=== PATIENT | male | born 1950 | race Asian ===

== ENCOUNTER 2016-12-16 14:15 | Inpatient (IN) | payer OTHER ==
[2016-12-16] MEDS ORDERED: IOPAMIDOL 300 (61%) 150 ML VIAL IV ONE (14:16)
[2016-12-16 14:53] LABS: ABSOLUTE NEUTROPHIL COUNT 14.8 K/mm3 (1.8-7.7); BASO % 0.2 % (0.2-1.0); EOS % 0.1 % (0.9-2.9); HEMATOCRIT 36.2 % (32.0-52.0); IMM NEUT # 0.2 K/mm3 (0-0.2); IMM NEUT% 1.3 % (0-1); LYMPH # 0.4 (1.0-4.8); LYMPH % 2.7 % (15-45); MEAN CELL VOLUME 91.4 fl (80.0-94.0); MEAN CORPUSCULAR HEMOGLOBIN 30.3 pg (27.0-31.0); MEAN CORPUSCULAR HGB CONC 33.1 g/dl (33.0-37.0); MEAN PLATELET VOLUME 9.7 fl (7.4-10.4); MONO # 0.5 (0.0-0.8); MONO % 3.4 % (4-12); NEUT % 92.3 % (43-75); PLATELET COUNT 194 K/mm3 (130-400); RED CELL DISTRIBUTION WIDTH 12.7 % (11.5-14.5)
[2016-12-16 15:06] LABS: ALBUMIN 3.1 gm/dL (3.5-5.7); CALCIUM 8.5 mg/dL (8.6-10.3); MAGNESIUM 1.7 mg/dL (1.9-2.7)
--- NOTE | 2016-12-16 15:33 | CT ---
Exam Type: ABD/PELVIS W/ CON Date and Time: 12/16/2016 2:27 PM Clinical information: Right-sided abdominal pain with vomiting Comparison: 08/05/2013 Technique: Contiguous axial 4 mm images were obtained from the lung bases through the pelvis after the uneventful IV administration of 125 cc of Isovue-300. Sagittal and coronal reformations with high resolution lung algorithm images were also obtained at this time. CT DI: 9.8 DLP 469.6 FINDINGS: Lung base : Patchy consolidative density is noted at the lung bases bilaterally. There may be a tiny loculated left effusion versus small area of pleural thickening. Visualized heart:There is no pericardial effusion. LIVER: within normal limits. BILE DUCTS: normal caliber. GALLBLADDER: Surgically absent. PANCREAS: within normal limits. SPLEEN: within normal limits. ADRENALS: within normal limits. KIDNEYS: within normal limits. Stomach and small BOWEL: Multiple fluid-filled loops of bowel are present with a few scattered air-fluid levels. These loops are not dilated by size criteria, however. Findings could relate to enteritis. Large bowel: Air and stool are noted within the large bowel. Diverticulosis without diverticulitis or abscess formation. Appendix is not clearly identified, though no secondary signs of appendicitis are seen. LYMPH NODES: No enlarged mesenteric lymph nodes. PERITONEUM: no ascites or free air, no fluid collection. VESSELS: Mild atherosclerotic disease. RETROPERITONEUM: within normal limits. ABDOMINAL WALL: within normal limits. Bladder: Normal BONES: Mild multilevel degenerative changes of the spine. IMPRESSION: Multiple fluid-filled loops of bowel are present with a few scattered air-fluid levels, though these are not dilated by size criteria. Findings could relate to enteritis. Bibasilar consolidation with possible tiny effusion. Findings could represent pneumonia in the correct clinical context. Other incidental findings as above. Findings were called to Dr. Lynch at approximately 1528 hours on 12/16/2016.
[2016-12-16 15:34] LABS: BAND 4 % (0-10); BASOPHIL 0 % (0-1); EOSINOPHIL 1 % (1-3); LYMPHOCYTE 6 % (15-45); MONOCYTE 2 % (4-12); NEUTROPHILS 87 % (43-75); PLATELET ESTIMATE NORMAL (NORMAL); TOTAL CELLS COUNTED 100
--- NOTE | 2016-12-16 15:34 | RAD ---
12/16/2016 3:29 PM CHEST - 2 VIEWS History: Dyspnea. Comparison: Films same back to 11/14/2012 Findings: Two views of the chest are obtained. The lungs demonstrate bibasilar patchy airspace disease within the posterior costophrenic angle compatible with pneumonia. The cardiomediastinal silhouette is unremarkable.. The osseous structures are intact.. IMPRESSION: Bibasilar pneumonia..
[2016-12-16 16:12] LABS: SPECIFIC GRAVITY 1.015 (1.001-1.030); URINE APPEARANCE CLEAR; URINE BILIRUBIN NEGATIVE (NEGATIVE); URINE BLOOD TRACE (NEGATIVE); URINE COLOR YELLOW; URINE GLUCOSE (UA) NEGATIVE (NEGATIVE); URINE LEUKOCYTE ESTERASE NEGATIVE (NEGATIVE); URINE NITRITE NEGATIVE (NEGATIVE); URINE PROTEIN TRACE (NEGATIVE); URINE UROBILINOGEN 4 mg/dL (0-1 mg/dl)
[2016-12-16] MEDS ORDERED: CEFTRIAXONE 1 GRAM DUPLEX 50 ML IV ONE (16:18)
[2016-12-16] MEDS ORDERED: DOXYCYCLINE HYCLATE 100 MG IV VIAL ONE (16:18)
[2016-12-16] MEDS ORDERED: LACTATED RINGERS 1,000 ML ONE (16:19)
[2016-12-16] MEDS ORDERED: SODIUM CHLORIDE 0.9% 100 ML IV ONE (16:19)
[2016-12-16 16:30] LABS: URINE WBC 0-1 /hpf
[2016-12-16 16:31] LABS: URINE BACTERIA 0; URINE EPITHELIAL CELLS 0-1 /hpf
[2016-12-16] MEDS ORDERED: SODIUM CHLORIDE 0.9% FLUSH 10 ML ONE (18:02)
[2016-12-16] MEDS ORDERED: [UNRECOGNIZED DRUG - OTHER] PO SCH (18:11)
[2016-12-16] MEDS ORDERED: BUPRENORPHINE PO SCH (18:11)
[2016-12-16 18:45] VITALS: BMI 26.2
[2016-12-16] MEDS ORDERED: BLISTEX LIPSTICK 1 EACH TP PRN (20:20)
[2016-12-16] MEDS ORDERED: MAGNESIUM HYDROXIDE 30 ML UDCUP PO PRN (20:20)
[2016-12-16] MEDS ORDERED: ACETAMINOPHEN 325 MG TABLET PO PRN (20:20)
[2016-12-16] MEDS ORDERED: BISACODYL 5 MG TABLET.EC PO PRN (20:20)
[2016-12-16] MEDS ORDERED: BISACODYL 10 MG SUP PR PRN (20:20)
[2016-12-16] MEDS ORDERED: MENTHOL/CETYLPYRD 1 EACH LOZENGE PO PRN (20:20)
[2016-12-16] MEDS ORDERED: INSULIN ASPART (DOSE) 100 UNITS/1 ML SUB-Q PRN (20:26)
[2016-12-16] MEDS ORDERED: NICOTINE POLACRILEX 2 MG LOZENGE PO PRN (20:26)
[2016-12-16] MEDS ORDERED: SODIUM CHLORIDE 0.9% 1,000 ML IV SCH (20:30)
[2016-12-16] MEDS ORDERED: ALBUTEROL NEB 2.5 MG/3 ML VIAL.NEB NEB PRN (20:55)
[2016-12-16] MEDS: ALBUTEROL/IPRATROPIUM 2.5/0.5 MG 3 ML/EACH DOSE NEB SCH (20:57)
[2016-12-16] MEDS ORDERED: BUPRENORPHINE/NALOXONE 8MG/2MG 1 EACH FILM SL SCH (21:00)
[2016-12-16] MEDS ORDERED: PREDNISONE 20 MG TABLET PO ONE (21:00)
[2016-12-16] MEDS ORDERED: PUMP TUBING ONE (21:37)
[2016-12-16] MEDS: NYSTATIN 100000 UNIT/ML PO SCH (21:48)
[2016-12-16] MEDS: FLUTICASONE/SALMETEROL 500/50 14 PUFFS/DISK IH SCH (21:48)
[2016-12-16] MEDS: GABAPENTIN 800 MG TABLET PO SCH (21:49)
[2016-12-16] MEDS: ENOXAPARIN SODIUM 40 MG/0.4 ML SYRINGE SUB-Q SCH (21:49)
[2016-12-16] MEDS: METOPROLOL TARTRATE 25 MG TABLET PO SCH (21:49)
[2016-12-16] MEDS: GUAIFENESIN 600 MG TABLET.DR PO SCH (21:49)
[2016-12-16] MEDS: DOCUSATE SODIUM 100 MG CAPSULE PO SCH (21:49)
[2016-12-16] MEDS: PANTOPRAZOLE 40 MG TABLET DR PO SCH (22:02)
[2016-12-16] MEDS: MULTIVITAMINS 1 TAB TABLET PO SCH (22:03)
[2016-12-16] MEDS: [UNRECOGNIZED DRUG - OTHER] SL SCH (23:33)
[2016-12-16] MEDS: BUPRENORPHINE SL SCH (23:33)
[2016-12-17] MEDS: DOXYCYCLINE HYCLATE 100 MG in NS 0.9% (MINI-BAG PLUS) 100 ML IV SCH ×2 (04:37→16:09)
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
[2016-12-17] MEDS: ALBUTEROL/IPRATROPIUM 2.5/0.5 MG 3 ML/EACH DOSE NEB SCH ×4 (07:18→20:31)
[2016-12-17] MEDS: ONDANSETRON 4 MG ODT TAB PO PRN (07:49)
[2016-12-17] MEDS: MELOXICAM 7.5 MG TABLET PO SCH (08:39)
[2016-12-17] MEDS: MULTIVITAMINS 1 TAB TABLET PO SCH (08:40)
[2016-12-17] MEDS: METOPROLOL TARTRATE 25 MG TABLET PO SCH ×2 (08:40→20:54)
[2016-12-17] MEDS: TAMSULOSIN HCL 0.4 MG CAPSULE.DR PO SCH (08:40)
[2016-12-17] MEDS: DOCUSATE SODIUM 100 MG CAPSULE PO SCH ×2 (08:40→20:53)
[2016-12-17] MEDS: PREDNISONE 20 MG TABLET PO SCH (08:40)
[2016-12-17] MEDS: SERTRALINE HCL 50 MG TABLET PO SCH (08:40)
[2016-12-17] MEDS: PANTOPRAZOLE 40 MG TABLET DR PO SCH (08:40)
[2016-12-17] MEDS: GABAPENTIN 800 MG TABLET PO SCH ×3 (08:40→20:55)
[2016-12-17] MEDS: BUPROPION HCL 150 MG SR TABLET PO SCH (08:41)
[2016-12-17] MEDS: GUAIFENESIN 600 MG TABLET.DR PO SCH ×2 (08:41→20:53)
[2016-12-17] MEDS: BUPRENORPHINE SL SCH ×3 (08:41→20:54)
[2016-12-17] MEDS: [UNRECOGNIZED DRUG - OTHER] SL SCH ×3 (08:41→20:54)
[2016-12-17] MEDS: FLUTICASONE/SALMETEROL 500/50 14 PUFFS/DISK IH SCH ×2 (08:41→20:53)
[2016-12-17] MEDS: ATORVASTATIN CALCIUM 10 MG TABLET PO SCH (08:41)
[2016-12-17] MEDS: NYSTATIN 100000 UNIT/ML PO SCH ×4 (10:01→21:07)
--- NOTE | 2016-12-17 15:00 | PDOC43 ---
- Subjective Chief Complaint: Cough, SOB Still with cough productive of green sputum. SOB sl improved. Some gagging with cough leading to emesis. Abd feels "full", but no pain. Some nausea. Subjective: Reports Pain Tolerable, Reports Adequate Oral Intake, Denies Chest Pain, Denies Fever, Denies Chills - Objective Vital Signs Temperature 98.1 F 12/17/16 11:18 Pulse Rate 54 12/17/16 12:27 Respiratory Rate 16 12/17/16 12:50 Blood Pressure 129/63 12/17/16 11:18 O2 Saturation by Pulse Oximetry 96 12/17/16 12:27 Oxygen Delivery Method Nasal Cannula Oxygen Flow Rate 2 Intake and Output 12/16/16 12/17/16 12/18/16 06:59 06:59 06:59 Intake Total 3600 Output Total 205 Balance 1550 General: Alert, Oriented x3, Cooperative, No Acute Distress HEENT: Atraumatic Lungs: Other (scattered rales all french B.) Cardiovascular: Regular Rate and Rhythm Abdomen: Soft, Normal Bowel Sounds, Mild Distention, No Tenderness, No Rebounding, No Involuntary Guarding Extremities: Normal Pulses, No Edema, No Tenderness Current Medications: Current meds reviewed in EMR. - Problems: Assessment/Plan (1) Community acquired bacterial pneumonia Status: AcuteAssessment/Plan: POA, presumed bacterial. Failed outpt tx with levaquin. Now on Rocephin/doxy. Con't current abx, nebs, prednisone, supportive care. Await cx results. (2) RAD (reactive airway disease) Qualifiers: Asthma severity: unspecified severity Asthma complication type: uncomplicated Qualifier Code: (J45.909) Unspecified asthma, uncomplicated Status: ChronicAssessment/Plan: Exacerbation in context of pna as above. (3) Diabetes mellitus, type II Qualifiers: Diabetes mellitus complication status: with unspecified complications Diabetes mellitus custodial insulin use: without intermediate frame tender use Qualifier Code: (E11.8) Type 2 diabetes mellitus with unspecified complications Status : ChronicAssessment/Plan: Stable on basal/bolus. (4) Chronic pain Qualifiers: Chronic pain type: other chronic pain Qualifier Code: (G89.29) Other chronic pain Status: ChronicAssessment/Plan: Stable on usual regimen. (5) PUD (peptic ulcer disease) Status: ChronicAssessment/Plan: Con't on protonix substituted for usual omeprazole. (6) BPH (benign prostatic hyperplasia) Qualifiers: Prostatic enlargement morphology: unspecified morphology Lower urinary tract symptom presence: symptoms absent Qualifier Code: (N40.0) Benign prostatic hyperplasia without lower urinary tract symptoms Status: Chronic Assessment/Plan: Stable on usual tamsulosin. (7) Alcoholism in remission Status: ChronicAssessment/Plan: At baseline. No ETOH x > 1 year. VTE Prophylaxis: Lovenox. Disposition: Anticipate d/c home in 1-2 days.
[2016-12-17] MEDS ORDERED: PUMP TUBING ONE (15:34)
[2016-12-17] MEDS: SODIUM CHLORIDE 0.9% 100 ML IV PRN (15:42)
[2016-12-17] MEDS ORDERED: CEFTRIAXONE SODIUM IV SCH (16:30)
[2016-12-17] MEDS ORDERED: SODIUM CHLORIDE 0.9% IV SCH (16:30)
[2016-12-17] MEDS: ENOXAPARIN SODIUM 40 MG/0.4 ML SYRINGE SUB-Q SCH (20:53)
[2016-12-18] MEDS ORDERED: PUMP TUBING ONE (04:46)
[2016-12-18] MEDS: DOXYCYCLINE HYCLATE 100 MG in NS 0.9% (MINI-BAG PLUS) 100 ML IV SCH ×2 (04:54→18:07)
[2016-12-18] MEDS: SODIUM CHLORIDE 0.9% 100 ML IV PRN ×2 (04:54→18:06)
[2016-12-18 06:11] LABS: HEMATOCRIT 33.6 % (32.0-52.0); HEMOGLOBIN 11.2 gm/l (14.0-18.0); MEAN CELL VOLUME 91.1 fl (80.0-94.0); MEAN CORPUSCULAR HEMOGLOBIN 30.4 pg (27.0-31.0); MEAN CORPUSCULAR HGB CONC 33.3 g/dl (33.0-37.0); RED CELL DISTRIBUTION WIDTH 12.9 % (11.5-14.5)
[2016-12-18 06:38] LABS: ALBUMIN 2.9 gm/dL (3.5-5.7); CALCIUM 8.4 mg/dL (8.6-10.3)
[2016-12-18] MEDS: ALBUTEROL/IPRATROPIUM 2.5/0.5 MG 3 ML/EACH DOSE NEB SCH ×4 (07:54→19:30)
--- NOTE | 2016-12-18 08:13 | PDOC43 ---
- Subjective Chief Complaint: Cough, SOB Still feeling weak but better. Cough improved but not gone. Still with some "gas" abd discomfort located in mid epigastrum. Subjective: Reports Tolerating Diet Well, Reports Adequate Oral Intake, Reports Urinating Without Difficulty, Denies Chest Pain, Denies Nausea, Denies Vomiting , Denies Fever, Denies Chills - Objective Vital Signs Temperature 98.3 F 12/18/16 07:32 Pulse Rate 56 12/18/16 07:55 Respiratory Rate 18 12/18/16 07:55 Blood Pressure 160/78 12/18/16 07:32 O2 Saturation by Pulse Oximetry 91 12/18/16 07:55 Oxygen Delivery Method Nasal Cannula Oxygen Flow Rate 4 Intake and Output 12/17/16 12/18/16 12/19/16 06:59 06:59 06:59 Intake Total 3600 3774 Output Total 2050 2875 Balance 1550 899 General: Alert, Oriented x3, Cooperative, No Acute Distress HEENT: Atraumatic Lungs: Clear to Auscultation Bilaterally Cardiovascular: Regular Rate and Rhythm Abdomen: Soft, Tenderness (Minimal tenderness to vigorous palpation in mid- epigastrum.), Normal Bowel Sounds, Non-Distended, No Rebounding, No Involuntary Guarding Extremities: Normal Pulses, No Edema Laboratory 12/18/16 05:30 12/18/16 05:30 12/18/16 05:30 Total Bilirubin 0.4 AST 17 ALT 18 Alkaline Phosphatase 77 Current Medications: Current meds reviewed in EMR. - Problems: Assessment/Plan (1) Community acquired bacterial pneumonia Status: AcuteAssessment/Plan: POA, presumed bacterial. Failed outpt tx with levaquin. Now on Rocephin/doxy. Con't current abx, nebs, prednisone, supportive care. Cx negative. (2) RAD (reactive airway disease) Qualifiers: Asthma severity: unspecified severity Asthma complication type: uncomplicated Qualifier Code: (J45.909) Unspecified asthma, uncomplicated Status: ChronicAssessment/Plan: Exacerbation in context of pna as above. (3) Diabetes mellitus, type II Qualifiers: Diabetes mellitus complication status: with unspecified complications Diabetes mellitus moth exterminator insulin use: without custodial use Qualifier Code: (E11.8) Type 2 diabetes mellitus with unspecified complications Status : ChronicAssessment/Plan: Stable on basal/bolus. (4) Chronic pain Qualifiers: Chronic pain type: other chronic pain Qualifier Code: (G89.29) Other chronic pain Status: ChronicAssessment/Plan: Stable on usual regimen. (5) PUD (peptic ulcer disease) Status: ChronicAssessment/Plan: Con't on protonix substituted for usual omeprazole. (6) BPH (benign prostatic hyperplasia) Qualifiers: Prostatic enlargement morphology: unspecified morphology Lower urinary tract symptom presence: symptoms absent Qualifier Code: (N40.0) Benign prostatic hyperplasia without lower urinary tract symptoms Status: Chronic Assessment/Plan: Stable on usual tamsulosin. (7) Alcoholism in remission Status: ChronicAssessment/Plan: At baseline. No ETOH x > 1 year. VTE Prophylaxis: Lovenox. Disposition: Anticipate d/c home in AM.
[2016-12-18] MEDS: ONDANSETRON 4 MG ODT TAB PO PRN (08:52)
[2016-12-18] MEDS: PREDNISONE 20 MG TABLET PO SCH (10:24)
[2016-12-18] MEDS: ATORVASTATIN CALCIUM 10 MG TABLET PO SCH (10:25)
[2016-12-18] MEDS: DOCUSATE SODIUM 100 MG CAPSULE PO SCH ×2 (10:25→21:19)
[2016-12-18] MEDS: TAMSULOSIN HCL 0.4 MG CAPSULE.DR PO SCH (10:25)
[2016-12-18] MEDS: MULTIVITAMINS 1 TAB TABLET PO SCH (10:25)
[2016-12-18] MEDS: MELOXICAM 7.5 MG TABLET PO SCH (10:25)
[2016-12-18] MEDS: BUPROPION HCL 150 MG SR TABLET PO SCH (10:26)
[2016-12-18] MEDS: FLUTICASONE/SALMETEROL 500/50 14 PUFFS/DISK IH SCH ×2 (10:26→21:20)
[2016-12-18] MEDS: SERTRALINE HCL 50 MG TABLET PO SCH (10:26)
[2016-12-18] MEDS: METOPROLOL TARTRATE 25 MG TABLET PO SCH ×2 (10:26→21:19)
[2016-12-18] MEDS: GABAPENTIN 800 MG TABLET PO SCH ×3 (10:26→21:19)
[2016-12-18] MEDS: GUAIFENESIN 600 MG TABLET.DR PO SCH ×2 (10:26→21:19)
[2016-12-18] MEDS: PANTOPRAZOLE 40 MG TABLET DR PO SCH (10:26)
[2016-12-18] MEDS: NYSTATIN 100000 UNIT/ML PO SCH ×3 (10:31→21:18)
[2016-12-18] MEDS: [UNRECOGNIZED DRUG - OTHER] SL SCH ×3 (10:33→21:19)
[2016-12-18] MEDS: BUPRENORPHINE SL SCH ×3 (10:33→21:19)
[2016-12-18] MEDS ORDERED: NYSTATIN 100000 UNIT/ML PO SCH (10:45)
[2016-12-18] MEDS ORDERED: SODIUM CHLORIDE 0.9% FLUSH 10 ML ONE (15:09)
[2016-12-18] MEDS ORDERED: IV START KIT ONE (15:10)
[2016-12-18] MEDS ORDERED: CEFTRIAXONE 1 GRAM DUPLEX 50 ML IV SCH (16:30)
[2016-12-18] MEDS: ENOXAPARIN SODIUM 40 MG/0.4 ML SYRINGE SUB-Q SCH (21:20)
[2016-12-19] MEDS: NYSTATIN 100000 UNIT/ML PO SCH ×2 (05:45→09:28)
[2016-12-19] MEDS: DOXYCYCLINE HYCLATE 100 MG in NS 0.9% (MINI-BAG PLUS) 100 ML IV SCH (05:45)
[2016-12-19 07:37] VITALS: BP 149/80
[2016-12-19] MEDS: ALBUTEROL/IPRATROPIUM 2.5/0.5 MG 3 ML/EACH DOSE NEB SCH (08:24)
[2016-12-19] MEDS: BUPROPION HCL 150 MG SR TABLET PO SCH (09:27)
[2016-12-19] MEDS: METOPROLOL TARTRATE 25 MG TABLET PO SCH (09:27)
[2016-12-19] MEDS: GUAIFENESIN 600 MG TABLET.DR PO SCH (09:27)
[2016-12-19] MEDS: TAMSULOSIN HCL 0.4 MG CAPSULE.DR PO SCH (09:27)
[2016-12-19] MEDS: SERTRALINE HCL 50 MG TABLET PO SCH (09:27)
[2016-12-19] MEDS: MELOXICAM 7.5 MG TABLET PO SCH (09:27)
[2016-12-19] MEDS: GABAPENTIN 800 MG TABLET PO SCH (09:27)
[2016-12-19] MEDS: PANTOPRAZOLE 40 MG TABLET DR PO SCH (09:28)
[2016-12-19] MEDS: BUPRENORPHINE SL SCH (09:28)
[2016-12-19] MEDS: [UNRECOGNIZED DRUG - OTHER] SL SCH (09:28)
[2016-12-19] MEDS: DOCUSATE SODIUM 100 MG CAPSULE PO SCH (09:28)
[2016-12-19] MEDS: ATORVASTATIN CALCIUM 10 MG TABLET PO SCH (09:28)
[2016-12-19] MEDS: PREDNISONE 20 MG TABLET PO SCH (09:28)
[2016-12-19] MEDS: FLUTICASONE/SALMETEROL 500/50 14 PUFFS/DISK IH SCH (09:28)
[2016-12-19] MEDS: MULTIVITAMINS 1 TAB TABLET PO SCH (09:28)
--- NOTE | 2016-12-19 15:38 | DS ---
JERRY BUI [id number] DATE OF ADMISSION: 12/16/2016 DATE OF DISCHARGE: 12/19/2016 DISCHARGE DIAGNOSES: 1. Community acquired bilateral bacterial pneumonia. 2. Asthma exacerbation. 3. Oral thrush. OTHER DIAGNOSES: Include: 1. Glucose intolerance. 2. Alcoholism in remission. 3. Benign prostatic hypertrophy. 4. History of peptic ulcer disease which is stable. SUMMARY OF ADMISSION AND HOSPITAL COURSE: The patient is a 66-year-old male with medical problems as listed above who presented with complaints of cough and dyspnea. In the emergency department, he is found to have a bibasilar pneumonia. Symptoms have progressed despite treatment as an outpatient with prednisone and levofloxacin. He had a mild oxygen requirement on admission and his white blood cell count was elevated at 16,000. He was referred to the Hospitalist service for admission. He was treated with doxycycline and Rocephin. He had a gradual clinical improvement. He was successfully weaned off of oxygen. He was felt to be medically stable for discharge on 12/19/2016 PHYSICAL EXAM: VITAL SIGNS: Vitals at discharge showed a temperature of 98, pulse 55, blood pressure 149/80, respirations 16, oxygen saturation is 96% on room air. Body mass index is 26.3. Weight is 76.1 kg. GENERAL: This is an elderly [place] male in no acute distress. HEENT: Unremarkable. LUNGS: Reveal bibasilar rhonchi. CARDIOVASCULAR: Exam reveals a regular rate and rhythm without a murmur. ABDOMEN: Soft, nontender, nondistended with positive bowel sounds. EXTREMITIES: Show no peripheral edema. LABORATORY STUDIES: No new laboratory studies are available on the day of discharge. His renal function is normal and the creatinine in the normal range with normal electrolytes when last checked. PRIMARY CARE PROVIDER: Listed as Dr. Wally Rodrigues DISCHARGE MEDICATIONS: Will include: 1. Cefdinir 300 mg twice daily for 7 days. 2. Doxycycline 100 mg twice daily for 7 days. 3. Mycostatin 100,000 per mL 5 mL by mouth before meals and at bedtime for 14 days. 4. Prednisone 40 mg daily for 1 day, then 20 mg daily for 3 days, followed by 10 mg daily for 4 days. He will resume his previous home medications which include: 1. Lopressor 25 mg by mouth twice a day. 2. Lipitor 10 mg by mouth daily. 3. Glucophage 500 mg by mouth daily. 4. Prilosec 30 mg by mouth daily. 5. Wellbutrin SR 150 mg by mouth daily. 6. Zoloft 100 mg by mouth daily. 7. Flomax 0.4 mg by mouth daily. 8. Mobic 7.5 mg by mouth daily. 9. Dulera 200/5 mcg inhaler 2 inhalations twice daily. 10. Zofran 4 mg every 4 hours as needed for nausea. 11. Suboxone 8 mg/2 mg one sublingual 3 times daily. 12. Neurontin 800 mg by mouth 3 times daily. DISCHARGE FOLLOW UP: He should follow up with his primary care provider at [facility] sometime in the next 7 to 10 days. He will follow up with the orthopedic service as scheduled. MACARIO/rosario Cc: Wally Rodrigues MD
== END 2016-12-19 11:45 | disposition home or self-care (01) | DRG 194 ==
LOC: ED 14:15 → MS 16:28
PROVIDERS: ADMIT Family Medicine; ATTEND Family Medicine
DX: J15.9 Unspecified bacterial pneumonia (principal); J45.901 Unspecified asthma with (acute) exacerbation; F10.21 Alcohol dependence, in remission; E78.5 Hyperlipidemia, unspecified; I10 Essential (primary) hypertension; N40.0 Benign prostatic hyperplasia without lower urinary tract symptoms; F17.210 Nicotine dependence, cigarettes, uncomplicated; F32.9 Major depressive disorder, single episode, unspecified; E11.65 Type 2 diabetes mellitus with hyperglycemia; Z79.84 Long term (current) use of oral hypoglycemic drugs; B37.9 Candidiasis, unspecified; Z87.11 Personal history of peptic ulcer disease; G89.29 Other chronic pain